=== PATIENT | male | born 1940 | race Caucasian/White ===

== ENCOUNTER → 2016-09-24 | Day surgery (SDC) | payer MEDICARE, OTHER ==
[~2016-09-24] VITALS: Ht 177.8 cm; Wt 115.2 kg
[~2016-09-24] MED LIST: AMARYL4 MG PO; ASPIRIN EC81 MG PO; CITRACAL+D(315M1 TAB PO; HYDRODIURIL12.5 MG PO; LOPID600 MG; LOPRESSOR50 M1 PO; NORVASC10 MG PO; ZESTRIL40 MG PO; ZOCOR80 MG PO
--- NOTE | ~2016-09-24 | OR ---
PATIENT'S NAME: SARBJIT SMITH [facility] AGE: 76 Y [address] ROOM: [place] [id number] LOCATION: [facility] [place] ADMIT DATE: 09/24/2016 OR/Procedure Report DISCHARGE DATE: FAMILY PHYSICIAN: Chitra Judd MD ATTENDING PHYSICIAN: Onur Caal SURGEON: Onur Caal MD DAY PORTER: DATE OF PROCEDURE: 09/24/2016 PREOPERATIVE DIAGNOSIS: Basal cell carcinoma of the nose (2 locations). POSTOPERATIVE DIAGNOSIS: Basal cell carcinoma of the nose (2 locations). ANESTHESIA: General. SURGERY: Includes excision of basal cell carcinoma, right upper lateral nose and right nasal tip region (frozen section revealed clear margins). DESCRIPTION OF PROCEDURE: The patient was brought to the operating room, placed in supine position, and underwent general anesthesia without incident. The patient was prepped and draped in a normal sterile fashion. The right upper nasal lesion was initially marked out and infiltrated with 3 mL of 1% lidocaine with 1:100,000 epinephrine. Incision was carried down through the subcutaneous tissues, and the lesion was sent off for frozen section, which revealed clear margins after re-excision involving the upper portion of the lesion. The rotation flap was then used including a glabellar flap. This was placed in the area of the wound and sutured in place in an interrupted fashion. The defect was closed in interrupted fashion as well with deep Vicryl and skin approximated with nylon suture. The nasal tip lesion was sent down for frozen section, which revealed basal cell carcinoma. This was excised and re-excised as well. This wound was closed primarily with a small defect and left to heal secondarily. Both wounds were closed without difficulty. Blood loss was minimal. The patient tolerated the procedure well, was extubated and taken to the recovery room in stable condition. ONUR CAAL MD DGO/modl /[id number] d: 10/29/16 0845 t: 11/02/16 1549, OPERATIVE SUMMARY
--- NOTE | ~2016-09-24 | OR ---
PATIENT'S NAME: SARBJIT SMITH [facility] AGE: 76 Y [address] ROOM: [place] [id number] [place] [facility] [place]MIT DATE: 09/24/2016 OR/Procedure Report DISCHARGE DATE: FAMILY PHYSICIAN: Chitra Judd MD ATTENDING PHYSICIAN: Marilin Caal SURGEON: Marilin Caal MD SENIOR STAFF ACCOUNTANT: DATE OF PROCEDURE: 09/24/2016 PREOPERATIVE DIAGNOSIS: Basal cell carcinoma, right nasal region. POSTOPERATIVE DIAGNOSES: 1. Basal cell carcinoma, right nasal region. 2. Right lower nasal lesion basal cell carcinoma. HISTORY: Sarbjit Smith is a 76-year-old gentleman with a history of skin cancer. The patient has had previous excision of the right lower nasal region. The patient noted a second lesion superiorly just medial to the medial canthus on the lateral nasal wall. This was biopsied basal cell carcinoma. Preoperatively, the patient noticed a lesion on the lateral aspect of the previous excision site and wanted me to biopsy this as well. Incidentally, this did come back cancer which was reexcised with clear margins. DESCRIPTION OF PROCEDURE: Sarbjit Smith was brought to the operating room and placed in the supine position. General anesthesia without incident. The patient was prepped and draped in the normal sterile fashion. The area of the superior right nasal lesion was infiltrated with 7 mL of 1% lidocaine with 1:100,000 epinephrine. A glabellar flap was used to cover the defect. The wound was prepped and draped in the normal sterile fashion. The lesion was marked out, and excision was performed. Frozen section revealed a positive margin which was then reexcised and was noted to be clear. A glabellar flap was then elevated in the usual fashion and turned into the defect in a rotation fashion. The wound was undermined and closed with multiple layers including deep Vicryl, and also skin was approximated with 6-0 nylon in a running fashion as well as fast absorbing gut suture around the medial canthal region. The lower right nasal lesion was punch biopsied with a 5 mm punch. This came back carcinoma. This was re-excised, a positive margin was re- submitted, and this was clear of tumor. I closed this lesion partially and will let the remainder granulate in on its own. Sarbjit Smith tolerated the procedure well. Blood loss was 75 mL. The patient was extubated and taken to the recovery room in stable condition. The wound was covered with antibiotic ointment. PATIENT'S NAME: SARBJIT SMITH [facility] AGE: 76 Y [address] ROOM: [place], [place] [address] [place] [facility] [place]MIT DATE: 09/24/2016 OR/Procedure Report DISCHARGE DATE: FAMILY PHYSICIAN: Chitra Judd MD ATTENDING PHYSICIAN: Marilin Caal MARILIN CAAL MD DGO/modl /[id number] d: 09/24/16 1150 t: 10/01/16 0821, OPERATIVE SUMMARY
[2016-09-24 07:07] LABS: ALBUMIN 3.4 gm/dL (3.5-5.0); ANION GAP 11.2 (10.0-19.0); CALCIUM 8.4 mg/dL (8.5-10.5); POTASSIUM 3.2 mMol/L (3.7-5.1); TOTAL BILIRUBIN 0.5 mg/dL (0.0-1.5); TOTAL PROTEIN 7.3 g/dL (6.0-8.4)
== END ==
LOC: GPOC 09-22 14:00 → GSDC 05:54 → GPOC 07:00
PROVIDERS: Otolaryngology
PROC: 0HB1XZZ Excision of Face Skin, External Approach (ICD-10-PCS; principal; 2016-09-24)
DX: C44.311 Basal cell carcinoma of skin of nose (principal); E78.00 Pure hypercholesterolemia, unspecified; I10 Essential (primary) hypertension; E11.51 Type 2 diabetes mellitus with diabetic peripheral angiopathy without gangrene; E11.21 Type 2 diabetes mellitus with diabetic nephropathy; Z86.718 Personal history of other venous thrombosis and embolism; Z96.653 Presence of artificial knee joint, bilateral; Z90.49 Acquired absence of other specified parts of digestive tract; Z98.41 Cataract extraction status, right eye; Z98.42 Cataract extraction status, left eye; E66.01 Morbid (severe) obesity due to excess calories; Z68.41 Body mass index [BMI] 40.0-44.9, adult
CPT/HCPCS: J2001; J7120